=== PATIENT | female | born 1965 | race Caucasian/White ===

== ENCOUNTER → 2019-04-22 | Day surgery (SDC) | payer BC ==
[~2019-04-22] MED LIST: Lactated Ringers 1,000 ML IV SCH; Propofol 200 MG/20 ML SDV IV ONE
--- NOTE | 2019-04-22 13:57 | OR ---
DATE OF OPERATION: 04/22/2019 PREOPERATIVE DIAGNOSIS: SCREENING COLONOSCOPY. POSTOPERATIVE DIAGNOSIS: SCREENING COLONOSCOPY. SURGEON: Giancarlo Moy MD PROCEDURE: FULL-LENGTH COLONOSCOPY. ANESTHESIA: MAC via MECHANICAL SYSTEM TECHNICIAN. COMPLICATIONS: None. SPECIMEN: None. FINDINGS: Normal full-length exam. RECOMMENDATIONS: Followup colonoscopy every 5 years per ACS guidelines. INDICATIONS: The patient had recent genetic testing and was a higher risk for colon cancer. It was recommended for her to have every 5-year screens. DESCRIPTION OF PROCEDURE: The patient was prepped and draped, placed in the left lateral decubitus position. A lubricated Olympus colonoscope was inserted and easily advanced to the cecum. We were able to directly visualize the ileocecal valve and appendiceal orifice. The bowel prep was adequate. Upon withdrawal of the scope, throughout the entire length of the colon, I could find no signs of any polyps, masses, ulceration, or bleeding sites. No vascular abnormalities or signs of colitis. There were no significant diverticula. The rectal vault appeared benign. Retroflexion of scope in the rectum showed no anal lesions. Air was suctioned and the scope was removed without complication. LISA/SHEILA /[id number]
== END ==
LOC: CC.SDS 10:21
PROVIDERS: ATTEND Family Medicine
DX: Z12.11 Encounter for screening for malignant neoplasm of colon (principal); F41.9 Anxiety disorder, unspecified; N95.1 Menopausal and female climacteric states; Z88.6 Allergy status to analgesic agent; Z88.0 Allergy status to penicillin; Z88.5 Allergy status to narcotic agent; Z88.8 Allergy status to other drugs, medicaments and biological substances; Z79.3 Long term (current) use of hormonal contraceptives; Z79.899 Other long term (current) drug therapy
CPT/HCPCS: J2704; J7120

== ENCOUNTER 2021-09-15 07:45 | Emergency (ER) | payer BC ==
--- NOTE | 2021-09-15 08:58 | EDM.PDOC ---
ED HPI GENERAL MEDICAL PROBLEM - General Chief Complaint: Upper Extremity Injury/Pain Stated Complaint: L wrist pain Time Seen by Provider: 09/15/21 08:10 Source of Information: Reports: Patient History Limitations: Reports: No Limitations - History of Present Illness INITIAL COMMENTS - FREE TEXT/NARRATIVE: States that she fell on the ice yesterday. She put her arm down to break her fall. Has pain to the left wrist. Stiff and tender to bend and use. No numbness or tingling distally. Mild swelling noted. Pain with flexing or extending the wrist. No pain to hand or fingers. Onset Date: 09/14/21 Location: Reports: Upper Extremity, Left Quality: Reports: Ache, Throbbing Improves with: Reports: Rest Left Wrist Pain Score (Numeric/FACES): 8 - Related Data Allergies Allergy/AdvReac Type Severity Reaction Status Date / Time acetaminophen [From Tylenol] Allergy Hives Verified 09/15/21 07:56 cephalexin [From Keflex] Allergy Itching Verified 09/15/21 07:56 meperidine [From Demerol] Allergy Nausea Verified 09/15/21 07:56 Penicillins Allergy Rash Verified 09/15/21 07:56 prochlorperazine Allergy Muscle Verified 09/15/21 07:56 [From Compazine] Aches sulfamethoxazole Allergy Other Verified 09/15/21 07:56 [From Bactrim] Tetanus Vaccines and Toxoid Allergy Swelling Verified 09/15/21 07:56 trimethoprim [From Bactrim] Allergy Other Verified 09/15/21 07:56 Home Meds: Home Meds Rosuvastatin [Crestor] 5 mg PO WEEKLY 09/15/21 [History] Past Medical History HEENT History: Reports: Impaired Vision - Infectious Disease History Infectious Disease History: Reports: None Social & Family History - Family History Family Medical History: No Pertinent Family History - Tobacco Use Tobacco Use Status *Q: Never Tobacco User - Caffeine Use Caffeine Use: Reports: Coffee Review of Systems - Review of Systems Review Of Systems: See Below Musculoskeletal: Reports: Joint Swelling (left wrist) Skin: Denies: Bruising, Wound ED EXAM, GENERAL - Physical Exam Exam: See Below Exam Limited By: No Limitations General Appearance: Alert, WD/WN Extremities: Normal Inspection, Normal Capillary Refill, Limited Range of Motion (to the left wrist due to the pain and mild swelling noted. normal ROM to hand and fingers.) Neurological: Alert, Oriented Skin Exam: Warm, Dry, Intact Course - Vital Signs Last Recorded V/S: Last Vital Signs Temp 97.6 F 09/15/21 07:51 Pulse 80 09/15/21 07:51 Resp 14 09/15/21 07:51 BP 128/79 09/15/21 07:51 Pulse Ox 98 09/15/21 07:51 - Orders/Labs/Meds Orders: Active Orders 24 hr Category Date Time Status Wrist Comp Min 3V Lt [CR] Stat Exams 09/15/21 08:02 Taken Departure - Departure Time of Disposition: 08:56 Disposition: Home, Self-Care 01 Condition: Good Clinical Impression: Sprain of wrist, left Qualifiers: Encounter type: initial encounter Qualified Code(s): S63.502A - Unspecified sprain of left wrist, initial encounter - Discharge Information *PRESCRIPTION DRUG MONITORING PROGRAM REVIEWED*: Not Applicable *COPY OF PRESCRIPTION DRUG MONITORING REPORT IN PATIENT LINUS: Not Applicable Instructions: Wrist Sprain, Adult Forms: ED Department Discharge Additional Instructions: Man wrap for comfort tylenol or advil as needed for discomfort if still painful in a week then have re xray ICE for swelling Use as tolerated. Sepsis Event Note (ED) - Evaluation Sepsis Screening Result: No Definite Risk - Focused Exam Vital Signs: Vital Signs Temp Pulse Resp BP Pulse Ox 09/15/21 07:51 97.6 F 80 14 128/79 98 - Problem List & Annotations (1) Sprain of wrist, left SNOMED Code(s): 16225841 Code(s): S63.502A - UNSPECIFIED SPRAIN OF LEFT WRIST, INITIAL ENCOUNTER Status: Acute Priority: High Qualifiers: Encounter type: initial encounter Qualified Code(s): S63.502A - Unspecified sprain of left wrist, initial encounter - Problem List Review Problem List Initiated/Reviewed/Updated: Yes - My Orders Last 24 Hours: My Active Orders 09/15/21 08:02 Wrist Comp Min 3V Lt [CR] Stat - Assessment/Plan Last 24 Hours: My Active Orders 09/15/21 08:02 Wrist Comp Min 3V Lt [CR] Stat
== END 2021-09-15 09:00 | disposition home or self-care (01) ==
LOC: CC.ED 07:45
DX: S63.502A Unspecified sprain of left wrist, initial encounter (principal); Z88.0 Allergy status to penicillin; Z88.1 Allergy status to other antibiotic agents; Z88.8 Allergy status to other drugs, medicaments and biological substances; Z88.7 Allergy status to serum and vaccine; Z79.899 Other long term (current) drug therapy; W18.39XA Other fall on same level, initial encounter
CPT/HCPCS: 73110-LT; 99283

== ENCOUNTER → 2024-05-13 | Day surgery (SDC) | payer BC ==
[~2024-05-13] MED LIST changes: -Lactated Ringers 1,000 ML IV SCH; +Midazolam 1 MG/ML 2 ML SDV ONE; +Ondansetron 4 MG/2 ML SDV ONE; -Propofol 200 MG/20 ML SDV IV ONE; +Propofol 200 MG/20 ML SDV ONE
[2024-05-13] MEDS: Lactated Ringers 1,000 ML IV SCH (10:49)
== END ==
LOC: CC.SDS 10:22
PROVIDERS: ATTEND Family Medicine
DX: Z12.11 Encounter for screening for malignant neoplasm of colon (principal); F41.9 Anxiety disorder, unspecified; Z79.899 Other long term (current) drug therapy; Z88.0 Allergy status to penicillin; Z88.2 Allergy status to sulfonamides; Z88.5 Allergy status to narcotic agent; Z88.6 Allergy status to analgesic agent
CPT/HCPCS: J2250; J2405; J2704; J7120